=== PATIENT | female | born 1995 | race Hispanic/Latino ===

== ENCOUNTER 2025-05-28 10:03 | Outpatient (CLI) | payer OTHER | END 2025-05-28 10:04 | disposition home or self-care (01) | LOC: ULT 10:03 | PROVIDERS: ATTEND Nurse Practitioner Family | DX: R10.30 Lower abdominal pain, unspecified (principal); N83.12 Corpus luteum cyst of left ovary; R93.49 Abnormal radiologic findings on diagnostic imaging of other urinary organs | CPT/HCPCS: 76856 ==